=== PATIENT | male | born 1955 | race Caucasian/White ===

== ENCOUNTER 2023-06-29 09:50 | Emergency (ER) | payer SELFPAY ==
[~2023-06-29] VITALS: Ht 172.7 cm; Wt 83.9 kg
[2023-06-29] MEDS ORDERED: ALBUTEROL SULFATE 2.5 MG/3 ML NEBU ONE (10:17)
[2023-06-29] MEDS ORDERED: IPRATROPIUM BROMIDE 0.5 MG/2.5 ML NEBU ONE (10:17)
[2023-06-29 10:19] VITALS: O2SAT 96
[2023-06-29] MEDS: ALBUTEROL SULFATE 2.5 MG/3 ML NEBU NEB ONE (10:19)
[2023-06-29] MEDS: IPRATROPIUM BROMIDE 0.5 MG/2.5 ML NEBU NEB ONE (10:19)
[2023-06-29] MEDS ORDERED: diphenhydrAMINE 50 MG/1 ML VIAL ONE (10:23)
[2023-06-29] MEDS ORDERED: FAMOTIDINE. 20 MG/2 ML VIAL IV ONE (10:23)
[2023-06-29] MEDS ORDERED: methylPREDNISolone SOD SUCC 125 MG/2 ML VIAL ONE (10:23)
[2023-06-29 10:34] VITALS: O2SAT 99
[2023-06-29] MEDS: diphenhydrAMINE 50 MG/1 ML VIAL IV ONE (11:08)
[2023-06-29] MEDS: methylPREDNISolone SOD SUCC 125 MG/2 ML VIAL IV ONE (11:09)
[2023-06-29] MEDS: FAMOTIDINE. 20 MG/2 ML VIAL IV ONE (11:09)
[2023-06-29 11:15] VITALS: O2SAT 98
[2023-06-29] MEDS ORDERED: FAMO10TA41 PO (11:20)
== END 2023-06-29 11:27 | disposition home or self-care (01) ==
LOC: ER 09:50
DX: J98.01 Acute bronchospasm (principal); T50.995A Adverse effect of other drugs, medicaments and biological substances, initial encounter; E78.5 Hyperlipidemia, unspecified; Z79.899 Other long term (current) drug therapy; Z88.0 Allergy status to penicillin; Y92.89 Other specified places as the place of occurrence of the external cause
CPT/HCPCS: 99284; 96374; 71045; 96375; 94640; J1200; J3490; J2930; 94760; A4606; A4663; J3590